=== PATIENT | male | born 1955 | race African-American/Black ===

== ENCOUNTER 2024-10-11 12:32 | Emergency (ER) | payer MEDICARE, SELFPAY ==
--- NOTE | ~2024-10-11 | CT_ITS ---
CT soft tissue neck w con History: 69 years Male with . Left-sided posterior pharyngeal swelling . Comparison: None. Technique: CT soft tissues neck was performed with contrast. . The dose-length product was 441.66 mGy -cm. Findings: LOWER HEAD: The visualized brain parenchyma, optic globes/orbits and mastoids are normal. The visua lized paranasal sinuses are well aerated. SALIVARY GLANDS: Normal. THYROID: Normal. SUPRAHYOID DEEP SPACES: Normal. CAROTID ARTERIES: Normal. JUGULAR VEINS: Normal. TONSILS: Within the mucosal pharyngeal space, asymmetric enlargement of the left palatine and lingual tonsils are identified with obstruction of the left piriform fossa/piriform recess. No rim enhancement is identified in this area, however the edematous soft tissues demonstrate mixed a ttenuation, denser than simple fluid. This abnormal focus measures 15 x 14 x 34 mm (anterior to poste rior x medial to lateral x cranial to caudal dimension), and is located to the left of midline. ORAL CAVITY: Unremarkable PHARYNX, LARYNX AND TRACHEA: Patent. No prevertebral soft tissue swelling. SUPERFICIAL SOFT TISSUES: Scattered nonpathologically enlarged lymph nodes. THORACIC INLET/VISUALIZED UPPER CHEST: Biapical scarring with panlobular emphysematous disease. SKELETAL: Significant degenerative disease with osteophyte formation, disc space narrowing and endpla te changes. Reversal of the normal curvature of the cervical spine is present, with increased density at the leve ls of C5 and C6. IMPRESSION: Asymmetric enlargement of the left palatine and lingual tonsils with obstruction of the left piriform fossa / left piriform recess. While no rim enhancement is identified, the edematous soft tissues in the area of imaging concern dem onstrate mixed attenuation which is denser than simple fluid, with measurements as detailed above. Findings were discussed with Dr. Hawkins at 2:45 PM on 10/11/2024. Short-term follow-up is recommended. Reviewed, dictated and finalized at location A. RGIST/PEDIATRIC PULMONOLOGIST IMPRESSION: Asymmetric enlargement of the left palatine and lingual tonsils with obstructio n of the left piriform fossa / left piriform recess. While no rim enhancement is identified, the edematous soft tissues in the area of imaging concern demonstrate mixed attenuation which is denser than simple fl uid, with measurements as detailed above. Findings were discussed with Dr. Hawkins at 2:45 PM on 10/11/2024. Short-term follow-up is recommended.
[2024-10-11 12:38] VITALS: BP 141/81; PULSE 60; RESP 20; TEMP 36.8; O2SAT 99
[2024-10-11 12:42] VITALS: O2SAT 98
[2024-10-11 13:07] LABS: Strep Group A RT-PCR NOT DETECTED (Negative)
--- NOTE | 2024-10-11 13:14 | ED.GENADULT ---
HPI - General Adult General Chief complaint: Upper Respiratory Infection Stated complaint: sore throat Time Seen by Provider: 10/11/24 12:37 History of Present Illness HPI narrative: 69-year-old male presenting to the emergency department for evaluation for worsening left-sided posterior throat pain. Patient reports pain started approximately 3 days ago. Patient does report increased pain with swallowing. Patient denies any difficulty handle his secretions and denies any shortness of breath or difficulty breathing. Related Data Allergies Allergy/AdvReac Type Severity Reaction Status Date / Time No Known Allergies Allergy Verified 10/11/24 12:40 Review of Systems Review of Systems: All systems reviewed & are unremarkable except as noted in HPI and below Exam Narrative: APPEARANCE: Well appearing, no pain, no distress, well-nourished. HEAD: normocephalic, atraumatic. EYES: PERRLA/EOMI, conjunctivae clear. NOSE: Normal no drainage EARS:TMS clear with good light reflex. THROAT: Left-sided tonsillar swelling NECK: Supple. No adenopathy, no masses. RESPIRATORY: Airway patent, respirations nonlabored. Clear to auscultation bilaterally, no rales, rhonchi, wheezing. CARDIOVASCULAR: Regular rate and rhythm without murmurs rubs or gallops. ABDOMINAL: Soft, nontender, nondistended, normal bowel sounds MUSCULOSKELETAL: Moves all extremities. Strength/ROM intact, No edema, No calf tenderness. NEURO: Alert. Cranial nerves II through XII intact. SKIN: Warm, dry. Normal Color Course Vital Signs Vital signs: Vital Signs Temperature 98.3 F 10/11/24 12:38 Pulse Rate 60 10/11/24 12:38 Respiratory Rate 20 10/11/24 12:38 Blood Pressure 141/81 H 10/11/24 12:38 Pulse Oximetry 99 10/11/24 12:38 Oxygen Delivery Room Air 10/11/24 12:38 Temperature 98.3 F 10/11/24 12:38 Pulse Rate 60 10/11/24 12:38 Respiratory Rate 20 10/11/24 12:38 Blood Pressure 141/81 H 10/11/24 12:38 Pulse Oximetry 98 10/11/24 12:42 Oxygen Delivery Room Air 10/11/24 12:[address] [facility] Narrative Medical decision making narrative: 69-year-old male presenting to the emergency department for evaluation for left-sided sore throat. CT showed no definitive rim enhancing abscess. Patient strongly preferred to be discharged to home. Patient was started on Augmentin the emergency department along with a dose of Decadron to help with swelling. It was encouraged to have follow-up with ENT. Patient is also encouraged to return to the emergency department if he had any worsening symptoms. All questions concerns were addressed patient was well-appearing at time of discharge. Differential Diagnosis Differential Diagnosis: Pharyngitis, tonsillitis, abscess, COVID, strep Vital Signs Vital Signs: Vital Signs Temperature 98.3 F 10/11/24 12:38 Pulse Rate 60 10/11/24 12:38 Respiratory Rate 20 10/11/24 12:38 Blood Pressure 141/81 H 10/11/24 12:38 Pulse Oximetry 99 10/11/24 12:38 Oxygen Delivery Room Air 10/11/24 12:38 Temperature 98.3 F 10/11/24 12:38 Pulse Rate 60 10/11/24 12:38 Respiratory Rate 20 10/11/24 12:38 Blood Pressure 141/81 H 10/11/24 12:38 Pulse Oximetry 98 10/11/24 12:42 Oxygen Delivery Room Air 10/11/24 12:42 Lab Data Lab results reviewed: Yes I reviewed the patient's lab results. 10/11/24 13:55 Labs: Lab Results 10/11/24 10/11/24 10/11/24 Range/Units 12:38 13:03 13:33 Sodium 137 (137-145) mmol/L Potassium 4.2 (3.4-5.0) mmol/L Chloride 108 H (98-107) mmol/L Carbon Dioxide 27 (22-30) mmol/L Anion Gap 2 L (4-12) mmol/L BUN 10 (9-20) mg/dL Creatinine 0.90 (0.7-1.3) mg/dL Estim Creat Clear Calc 62 ml/min Estimated GFR > 60 (59 - ) Glucose 89 (65-110) mg/dL Calcium 8.4 (8.4-10.2) mg/dL Total Bilirubin 2.5 H (0.2-1.3) mg/dL AST 20 (17-59) U/L ALT 13 (6-50) U/L Alkaline Phosphatase 79 (38-126) U/L Total Protein 7.0 (6.3-8.2) g/dL Albumin 3.6 (3.5-5.1) g/dL Influenza A (RT-PCR) Negative (Negative) Influenza B (RT-PCR) Negative (Negative) RSV (RT-PCR) Negative (Negative) SARS-CoV-2 RNA (RT-PCR) Negative (Negative) Group A Strep (PCR) Not detected (Negative) 10/11/24 Range/Units 13:55 Sodium (137-145) mmol/L Potassium (3.4-5.0) mmol/L Chloride (98-107) mmol/L Carbon Dioxide (22-30) mmol/L Anion Gap (4-12) mmol/L BUN (9-20) mg/dL Creatinine 1.00 (0.7-1.3) mg/dL Estim Creat Clear Calc 56 ml/min Estimated GFR > 60 (59 - ) Glucose (65-110) mg/dL Calcium (8.4-10.2) mg/dL Total Bilirubin (0.2-1.3) mg/dL AST (17-59) U/L ALT (6-50) U/L Alkaline Phosphatase (38-126) U/L Total Protein (6.3-8.2) g/dL Albumin (3.5-5.1) g/dL Influenza A (RT-PCR) (Negative) Influenza B (RT-PCR) (Negative) RSV (RT-PCR) (Negative) SARS-CoV-2 RNA (RT-PCR) (Negative) Group A Strep (PCR) (Negative) Imaging Data Radiologist's impression: Impressions Soft Tissue Neck CT 10/11/24 14:21 IMPRESSION: Asymmetric enlargement of the left palatine and lingual tonsils with obstruction of the left piriform fossa / left piriform recess. While no rim enhancement is identified, the edematous soft tissues in the area of imaging concern demonstrate mixed attenuation which is denser than simple fluid, with measurements as detailed above. Findings were discussed with Dr. Hawkins at 2:45 PM on 10/11/2024. Short-term follow-up is recommended. Discharge Plan Discharge Clinical Impression: Tonsillitis Patient Disposition: Home, Self-Care Condition: Stable Instructions: Antibiotic Form Additional Instructions: Antibiotic as directed until completed. Have close follow-up with ENT. If you have any worsening symptoms then please call or return to the emergency department Patient Language: Frisian Prescriptions: New amoxicillin-pot clavulanate 875-125 mg tablet 1 tablet PO Q12H Qty: 14 0RF Follow-up/Referrals: Anthony Lunsford MD [Physician] - UNKNOWN,DOCTOR [Primary Care Provider] -
[2024-10-11] MEDS: dexAMETHasone SOD PHOS INJ 10 MG/ML 1 ML VIAL IV PUSH (13:21)
[2024-10-11] MEDS: SODIUM CHLORIDE 0.9% IV 1,000 ML 999 ML IV CONT (13:21)
[2024-10-11 13:48] LABS: Influenza A QL RT-PCR Negative (Negative); Influenza B QL RT-PCR Negative (Negative); RSV RNA, RT-PCR Negative (Negative); SARS-CoV-2 RNA PCR Negative (Negative)
[2024-10-11 13:52] LABS: Alanine Aminotransferase 13 U/L (6-50); Albumin Level 3.6 g/dL (3.5-5.1); Alkaline Phosphatase 79 U/L (38-126); Anion Gap 2 mmol/L (4-12); Aspartate Amino Transferase 20 U/L (17-59); Bilirubin,Total 2.5 mg/dL (0.2-1.3); Blood Urea Nitrogen 10 mg/dL (9-20); Calcium 8.4 mg/dL (8.4-10.2); Carbon Dioxide 27 mmol/L (22-30); Chloride 108 mmol/L (98-107); Estimated CRCL calculation 62 ml/min; Estimated Glomerular Filt Rate > 60; Glucose 89 mg/dL (65-110); Potassium 4.2 mmol/L (3.4-5.0); Sodium 137 mmol/L (137-145)
[2024-10-11 14:00] LABS: Estimated CRCL calculation 56 ml/min; Estimated Glomerular Filt Rate > 60
[2024-10-11] MEDS: AMOXICILLIN/CLAVULANATE K 875-125 MG TAB 1 TABLET PO (15:40)
== END 2024-10-11 15:45 | disposition home or self-care (01) ==
PROVIDERS: Emergency Medicine; Emergency Provider Emergency Medicine
DX: J03.90 Acute tonsillitis, unspecified (principal); Z20.822 Contact with and (suspected) exposure to COVID-19
CPT/HCPCS: 36415; 70491; 80053; 87637; 87651; 96361; 96374; 99284; A9270; J1100; J7030; Q9967

== ENCOUNTER 2025-01-05 13:50 | Emergency (ER) | payer MEDICARE, SELFPAY ==
--- NOTE | ~2025-01-05 | XR_ITS ---
HISTORY: fall COMPARISON: None TECHNIQUE: 3 views of the right elbow were performed. FINDINGS: Significant degenerative disease is identified with osteophyte formation and joint space narrowing. N o acute displaced fracture is identified. No elevation of the anterior or posterior fat pads are identified to suggest a supracondylar fracture . Overlying soft tissues are unremarkable. Bone mineralization is age advanced. IMPRESSION: Significant degenerative disease is identified rendering interpretation of plain film ev aluation somewhat limited. No acute displaced fracture is identified. If clinical suspicion persists, cross-sectional imaging (noncontrast enhanced CT examination of the r ight elbow) is suggested for further evaluation. Reviewed, dictated and finalized at location A. IMPRESSION: Significant degenerative disease is identified rendering interpret ation of plain film evaluation somewhat limited. No acute displaced fracture is identified. If clinical suspicion persists, cross-sectional imaging (noncontrast enhanced C T examination of the right elbow) is suggested for further evaluation.
--- NOTE | ~2025-01-05 | XR_ITS ---
XR ribs RT 2V w CXR 2V Ordering provider: Kathy Lopez PA-C History: . fall . Comparison: None. FINDINGS: BONES: No acute rib fracture. MEDIASTINUM: The cardiac silhouette is not enlarged. LUNGS: No infiltrates, effusions or pneumothorax. OTHER: No free air under the diaphragm. Degenerative changes of the spine. IMPRESSION: 1. No right rib fracture . 2. No acute cardiopulmonary findings. Reviewed, dictated and finalized at location A.
[2025-01-05 14:00] VITALS: BP 146/101; PULSE 84; RESP 16; TEMP 36.8; O2SAT 97
--- NOTE | 2025-01-05 15:25 | ED_ITS ---
HPI - Fall General Chief Complaint: Fall Stated Complaint: Fell -injury to right elbow and chest Focused HPI: 69-year-old male presents emergency department for right rib and right elbow pain after a fall that occurred this morning. Patient states he was walking and leading a horse when the horse started to run quickly across the patient to fall. States he landed on his right elbow and right ribs. He was not trampled by the horse. He denies hitting his head, LOC or other injuries acquired. He is not anticoagulated. GENERAL: Well-appearing, well-nourished, and in no acute distress. HEAD: Normocephalic, atraumatic. CHEST: Clear to auscultation. ?No respiratory distress. tenderness rate anterior lateral ribs with no overlying crepitus, step-offs or deformities EXT: tenderness to proximal radius with overlying edema, no obvious deformity, limited active flexion, full active extension, supination and pronation. No tenderness remainder of extremity. Radial pulse 2 +. Sensation intact. Radial, median and ulnar nerves are intact. HEART: Regular rate and rhythm.? NEURO: ?Alert and oriented x3. Patient screened in triage and initial orders placed.? ?Additional care and disposition to be based upon?diagnostic testing and treatment. History of Present Illness HPI Narrative: Agree with the above note Related Data Allergies Allergy/AdvReac Type Severity Reaction Status Date / Time No Known Allergies Allergy Verified 01/05/25 13:51 Review of Systems Review of Systems: All systems reviewed & are unremarkable except as noted in HPI and below Exam Narrative: GENERAL: Well-appearing, well-nourished, and in no acute distress. HEAD: Normocephalic, atraumatic. CHEST: Clear to auscultation. ?No respiratory distress. tenderness rate anterior lateral ribs with no overlying crepitus, step-offs or deformities EXT: tenderness to proximal radius with overlying edema, no obvious deformity, limited active flexion, full active extension, supination and pronation. No tenderness remainder of extremity. Radial pulse 2 +. Sensation intact. Radial, median and ulnar nerves are intact. HEART: Regular rate and rhythm.? NEURO: ?Alert and oriented x3. Course Vital Signs Vital signs: Vital Signs Temperature 98.2 F 01/05/25 14:00 Pulse Rate 84 01/05/25 14:00 Respiratory Rate 16 01/05/25 14:00 Blood Pressure 146/101 H 01/05/25 14:00 Pulse Oximetry 97 01/05/25 14:00 Temperature 98.2 F 01/05/25 14:00 Pulse Rate 84 01/05/25 14:00 Respiratory Rate 16 01/05/25 14:00 Blood Pressure 146/101 H 01/05/25 14:00 Pulse Oximetry 97 01/05/25 14:00 MDM - Fall MDM Narrative Medical decision making narrative: 69-year-old male presents emergency department for right rib pain and right elbow pain after mechanical fall that occurred prior to arrival. I did not hit his head or lose consciousness. No other injuries. See HPI for further history. Vitals with elevated blood pressure, otherwise unremarkable. Exam is significant for the above. Patient is neurovascularly intact. X-ray of the right ribs are unremarkable. X-ray of the elbow shows significant degenerative disease identified rendered interpretation of the plain film evaluation somewhat limited, no acute displaced fracture identified. Recommendations for noncontrast CT if clinical concern for acute fracture exists. I discussed x-ray findings with the patient he is agreeable to a CT noncontrast of the elbow for further evaluation given persistent pain. Patient eloped out of the department prior to obtaining CT of the elbow. Discharge Plan Discharge Clinical Impression: Rib contusion, Elbow pain Patient Disposition: Elopement After Seen by Prov Patient Language: Mohawk Prescriptions: No Action amoxicillin-pot clavulanate 875-125 mg tablet 1 tablet PO Q12H Qty: 14 0RF Follow-up/Referrals: UNKNOWN,DOCTOR [Primary Care Provider] -
--- NOTE | 2025-01-05 16:47 | PC.NURSE ---
patient decided to leave and follow up with PMD as needed
== END 2025-01-05 16:47 | disposition left against medical advice (07) ==
LOC: ANHED 18:53
PROVIDERS: Emergency Provider Physician Assistant
DX: S59.901A Unspecified injury of right elbow, initial encounter (principal); S20.211A Contusion of right front wall of thorax, initial encounter; W18.39XA Other fall on same level, initial encounter
CPT/HCPCS: 71046; 71100; 73080; 99284

== ENCOUNTER 2025-03-07 09:33 | Emergency (ER) | payer MEDICARE, SELFPAY ==
--- NOTE | ~2025-03-07 | CT_ITS ---
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 Comparison: None. Technique: CT soft tissues neck was performed with contrast. . Automated exposure control and iterat elder reconstruction technique were employed. The dose-length product was 355.00 mGy-cm. 75 mL of Omnip aque 350 was given IV. Findings: LOWER HEAD: The visualized brain parenchyma, optic globes/orbits and mastoids are normal. The visua lized paranasal sinuses are well aerated. SALIVARY GLANDS: Normal. THYROID: Normal. SUPRAHYOID DEEP SPACES: Lymph nodes seen in the right posterior triangle measuring 0.7 x 1.1 cm. CAROTID ARTERIES: Normal. JUGULAR VEINS: Normal. TONSILS: Enlarged right tonsil is noted with small hypodensity seen medially which may be an early ab scess measuring 0.8 x 1.4 cm. ORAL CAVITY: Partially obscured by dental amalgam but normal as visualized. PHARYNX, LARYNX AND TRACHEA: Patent and normal. No prevertebral soft tissue swelling. SUPERFICIAL SOFT TISSUES: Normal. No lymphadenopathy or neck mass. THORACIC INLET/VISUALIZED UPPER CHEST: Emphysematous changes of the lungs. SKELETAL: Age appropriate degenerative changes. IMPRESSION: Enlarged right tonsil with highly suggestive small abscess formation seen medially. Follow-up and cli nical evaluation advised. Reviewed, dictated and finalized at location A. IMPRESSION: Enlarged right tonsil with highly suggestive small abscess formation seen media lly. Follow-up and clinical evaluation advised.
[2025-03-07 09:35] VITALS: BP 147/77; PULSE 79; RESP 16; TEMP 36.4; O2SAT 98
[2025-03-07 11:18] LABS: Strep Group A RT-PCR NOT DETECTED (Negative)
[2025-03-07 11:30] LABS: Influenza A QL RT-PCR Negative (Negative); Influenza B QL RT-PCR Negative (Negative); RSV RNA, RT-PCR Negative (Negative); SARS-CoV-2 RNA PCR Negative (Negative)
[2025-03-07 11:31] LABS: Basophils Percent Auto 0.3 % (0.2-1.2); Eosinophils Percent Auto 0.3 % (0-4.4); Hematocrit 43.9 % (42.0-52.0); Hemoglobin 14.2 g/dL (14.0-18.0); Immature Granulocyte Absolute 0.03 K/mm3 (0.00-0.031); Immature Granulocyte Percent A 0.4 % (0-0.5); Lymphocytes Absolute Auto 1.11 K/mm3 (0.9-3.2); Lymphocytes Percent Auto 14.3 % (18.3-44.2); Mean Corpuscular HGB Conc 32.3 g/dl (32-36); Mean Corpuscular Hemoglobin 30.1 pg (26-34); Mean Corpuscular Volume 93.2 fl (80-100); Mean Platelet Volume 9.1 fl (7.4-10.4); Monocytes Percent Auto 12.8 % (2.6-8.5); Neutrophils Absolute Auto 5.6 K/mm3 (1.3-6.7); Neutrophils Percent Auto 71.9 % (45.5-73.1); Platelet Count Result 203 k/mm3 (150-375); Red Blood Count 4.71 M/mm3 (4.6-6.20); Red Cell Distribution Width 13.4 % (11.5-14.5)
[2025-03-07 11:43] LABS: Alanine Aminotransferase 16 U/L (6-50); Albumin Level 4.1 g/dL (3.5-5.1); Alkaline Phosphatase 75 U/L (38-126); Anion Gap 9 mmol/L (4-12); Aspartate Amino Transferase 24 U/L (17-59); Blood Urea Nitrogen 13 mg/dL (9-20); Calcium 8.7 mg/dL (8.4-10.2); Carbon Dioxide 25 mmol/L (22-30); Chloride 105 mmol/L (98-107); Estimated CRCL calculation 65 ml/min; Estimated Glomerular Filt Rate > 60; Glucose 103 mg/dL (65-110); Potassium 3.9 mmol/L (3.4-5.0); Sodium 139 mmol/L (137-145)
[2025-03-07 12:42] VITALS: BP 138/83; PULSE 70; RESP 14; O2SAT 100
--- NOTE | 2025-03-07 13:04 | ED_ITS ---
HPI - General Adult General Chief complaint: Upper Respiratory Infection Stated complaint: ST Time Seen by Provider: 03/07/25 09:43 History of Present Illness HPI narrative: Patient is a 69-year-old male who presents ER with sore throat. Ongoing last couple days. Feeling chilled and febrile today. Mild pain with swallowing. Concerned he may have strep throat. Related Data Allergies Allergy/AdvReac Type Severity Reaction Status Date / Time No Known Allergies Allergy Verified 03/07/25 09:42 Review of Systems 2 Constitutional: Constitutional: Reports no additional constitutional complaints ENT: Reports system reviewed and no additional complaints, except as documented Cardiovascular: Cardiovascular: Reports no additional cardiovascular complaints Respiratory: Respiratory: Reports no additional respiratory complaints [facility] Past Medical History Medical History (Updated 03/07/25 @ 13:33 by Vinny Long MD) Healthy adult male Exam 2 Narrative: GENERAL: Well-appearing, well-nourished, and in no acute distress. HEAD: Normocephalic, atraumatic. ENT: Mucous membranes moist. Right peritonsillar fullness without uvular deviation. Erythema noted over the right peritonsillar area. No exudate. NECK: Supple. CHEST: Clear to auscultation. No respiratory distress. HEART: Regular rate and rhythm. Normal peripheral pulses. EXTREMITIES: Normal range of motion. No edema. NEURO: Alert and oriented x3. PSYCH: Normal mood and affect. Course Course Emergency Course: Discussed case with ENT on-call. Decadron 10 mg IV, discharged with Augmentin twice a day. Patient should follow-up in 2 days however if he worsens he should come back to the ER immediately. Patient educated on this. Vital Signs Vital signs: Vital Signs Temperature 97.5 F L 03/07/25 09:35 Pulse Rate 79 03/07/25 09:35 Respiratory Rate 16 03/07/25 09:35 Blood Pressure 147/77 H 03/07/25 09:35 Pulse Oximetry 98 03/07/25 09:35 Oxygen Delivery Room Air 03/07/25 09:35 Temperature 97.5 F L 03/07/25 09:35 Pulse Rate 70 03/07/25 12:42 Respiratory Rate 14 03/07/25 12:42 Blood Pressure 138/83 03/07/25 12:42 Pulse Oximetry 100 03/07/25 12:42 Oxygen Delivery Room Air 03/07/25 12:37 Medical Decision Making Vital Signs Vital Signs: Vital Signs Temperature 97.5 F L 03/07/25 09:35 Pulse Rate 79 03/07/25 09:35 Respiratory Rate 16 03/07/25 09:35 Blood Pressure 147/77 H 03/07/25 09:35 Pulse Oximetry 98 03/07/25 09:35 Oxygen Delivery Room Air 03/07/25 09:35 Temperature 97.5 F L 03/07/25 09:35 Pulse Rate 70 03/07/25 12:42 Respiratory Rate 14 03/07/25 12:42 Blood Pressure 138/83 03/07/25 12:42 Pulse Oximetry 100 03/07/25 12:42 Oxygen Delivery Room Air 03/07/25 12:37 Lab Data 03/07/25 11:25 03/07/25 11:25 Labs: Lab Results 03/07/25 03/07/25 Range/Units 10:49 11:25 WBC 7.0 (4.5-10.0) K/mm3 RBC 4.71 (4.6-6.20) M/mm3 Hgb 14.2 (14.0-18.0) g/dL Hct 43.9 (42.0-52.0) % MCV 93.2 (80-100) fl MCH 30.1 (26-34) pg MCHC 32.3 (32-36) g/dl RDW 13.4 (11.5-14.5) % Plt Count 203 (150-375) k/mm3 MPV 9.1 (7.4-10.4) fl Immature Gran % (Auto) 0.4 (0-0.5) % Neut % (Auto) 71.9 (45.5-73.1) % Lymph % (Auto) 14.3 L (18.3-44.2) % Starr % (Auto) 12.8 H (2.6-8.5) % Eos % (Auto) 0.3 (0-4.4) % Baso % (Auto) 0.3 (0.2-1.2) % Lymph # (Auto) 1.11 (0.9-3.2) K/mm3 Starr # (Auto) 1.0 H (0.1-0.6) K/mm3 Eos # (Auto) 0.0 (0-0.3) K/mm3 Baso # (Auto) 0.0 (0.0-0.1) K/mm3 Abs Immat Gran (auto) 0.03 (0.00-0.031) K/mm3 Absolute Neuts (auto) 5.6 (1.3-6.7) K/mm3 Absolute Nucleated RBC 0.000 (0.0-0.012) K/mm3 Nucleated RBC % 0.0 (0.0-0.2) % Sodium 139 (137-145) mmol/L Potassium 3.9 (3.4-5.0) mmol/L Chloride 105 (98-107) mmol/L Carbon Dioxide 25 (22-30) mmol/L Anion Gap 9 (4-12) mmol/L BUN 13 (9-20) mg/dL Creatinine 0.81 (0.7-1.3) mg/dL Estim Creat Clear Calc 65 ml/min Estimated GFR > 60 (59 - ) Glucose 103 (65-110) mg/dL Calcium 8.7 (8.4-10.2) mg/dL Total Bilirubin 2.0 H (0.2-1.3) mg/dL AST 24 (17-59) U/L ALT 16 (6-50) U/L Alkaline Phosphatase 75 (38-126) U/L Total Protein 8.0 (6.3-8.2) g/dL Albumin 4.1 (3.5-5.1) g/dL Influenza A (RT-PCR) Negative (Negative) Influenza B (RT-PCR) Negative (Negative) RSV (RT-PCR) Negative (Negative) SARS-CoV-2 RNA (RT-PCR) Negative (Negative) Group A Strep (PCR) Not detected (Negative) Imaging Data Radiologist's impression: ITS Impressions Soft Tissue Neck CT 03/07/25 12:39 IMPRESSION: Enlarged right tonsil with highly suggestive small abscess formation seen medially. Follow-up and clinical evaluation advised. Discharge Plan Discharge Clinical Impression: Abscess, peritonsillar Patient Disposition: Home Condition: Stable Instructions: Peritonsillar Abscess (ED) Additional Instructions: Return ER if you cannot breathe, you cannot swallow, you have increased pain in your neck/throat, or you have additional concerns. Patient Language: Kinyarwanda Prescriptions: New hydrocodone-acetaminophen 5-325 mg tablet 1 tablet PO Q6H PRN (Reason: pain) Qty: 12 0RF amoxicillin-pot clavulanate 875-125 mg tablet 1 tablet PO Q12H Qty: 20 0RF No Action amoxicillin-pot clavulanate 875-125 mg tablet 1 tablet PO Q12H Qty: 14 0RF Follow-up/Referrals: James Vang MD [Physician] - 2 Days UNKNOWN,DOCTOR [Primary Care Provider] -
[2025-03-07] MEDS: dexAMETHasone SOD PHOS INJ 10 MG/ML 1 ML VIAL IV PUSH (13:11)
[2025-03-07 13:42] VITALS: BP 140/77; PULSE 77; RESP 16; O2SAT 100
== END 2025-03-07 13:44 | disposition home or self-care (01) ==
PROVIDERS: Emergency Provider Emergency Medicine
DX: J36 Peritonsillar abscess (principal); Z20.822 Contact with and (suspected) exposure to COVID-19
CPT/HCPCS: 36415; 70491; 80053; 85025; 87637; 87651; 96374; 99284; J1100; Q9967